=== PATIENT | male | born 1935 | race Caucasian/White ===

== ENCOUNTER → 2019-02-18 13:13 | Outpatient (CLI) | payer MEDICARE, OTHER, SELFPAY ==
--- NOTE | 2019-02-18 | DI.MRI.S_ITS ---
PROCEDURE: MR KNEE LT WO CON INDICATIONS: LEFT KNEE PAIN TECHNIQUE: Noncontrast sagittal PD fast spin echo and T2 fast spin echo with fat saturation, sagittal 3-D FLASH with fat saturation; coronal T1 spin echo and PD fast spin echo with fat saturation, and axial PD fast spin echo with fat saturation through the knee. COMPARISON: [facility], CR, XR KNEE 1 OR 2 VIEWS RIGHT, 03/11/2011, 18:19. [facility] [place], CR, XR KNEE ARTHRITIC SERIES BI, 02/03/2019, 10:35. FINDINGS: Image quality: Excellent. Menisci: There is lateral meniscal extrusion and severe degenerative tear of the entire lateral meniscus which is truncated. There is intrasubstance degeneration and mild degenerative tear of the medial meniscus. The meniscal root ligaments appear intact. Cruciate ligaments: The anterior cruciate ligament is at least partially torn. The posterior cruciate ligament is intact. Medial structures: The medial collateral ligament appears intact. The semimembranosus tendon insertions and meniscocapsular junction appear intact. Visualized portions of the pes anserinus tendons appear normal. No abnormal bursal fluid. Lateral structures: The lateral collateral ligament and the biceps femoris tendon appear intact. The popliteus tendon appears normal; the popliteofibular ligament appears intact. Iliotibial band appears normal. Anterior structures: The distal patellar tendon is severely thinned near its attachment to the tibial tubercle, consistent high-grade partial tear. Proximal patellar tendon is thickened consistent with tendinitis. There is fragmentation of tibial tubercle. The quadriceps tendon appear intact. Patellar alignment is normal. No femoral trochlear dysplasia or ventral trochlear prominence. There is edema in the infrapatellar fat pad. Bones and cartilage: No fractures. There is tricompartmental cartilage loss and signal degeneration, most severe in the lateral femorotibial compartment. There is subchondral edema in the lateral tibial plateau and lateral femoral condyle likely secondary to [id number]. Joint space: There is moderate knee joint fluid. A moderate sized nonruptured Masters's cyst is present. Normal appearing synovial plicae are incidentally noted. IMPRESSION: 1. Lateral meniscal extrusion and severe degenerative tear of the entire lateral meniscus. 2. Intrasubstance degeneration and mild degenerative tear of the medial meniscus. 3. High-grade partial tear or full-thickness tear of the anterior cruciate ligament. 4. Tricompartmental cartilage loss and signal degeneration. 5. High grade partial distal patellar tendon tear with associated patellar tendinitis. Fragmentation of the ventricle may be secondary to prior trauma or Stockton-Schlatter disease. 6. Moderate knee joint effusion. 7. A moderate sized nonruptured Masters's cyst. Dictated by: Heather Madrid M.D. on 02/18/2019 at 14:25 Approved by: Heather Madrid M.D. on 02/18/2019 at 14:42
== END ==
PROVIDERS: PCP Family Medicine; Visit Provider Orthopaedic Surgery
DX: M25.562 Pain in left knee (principal); S83.512A Sprain of anterior cruciate ligament of left knee, initial encounter; M23.262 Derangement of other lateral meniscus due to old tear or injury, left knee; M23.204 Derangement of unspecified medial meniscus due to old tear or injury, left knee; M76.52 Patellar tendinitis, left knee; M25.462 Effusion, left knee
CPT/HCPCS: 73721

== ENCOUNTER → 2019-02-19 14:06 | Outpatient (CLI) | payer MEDICARE, OTHER, SELFPAY ==
[2019-02-19 14:18] LABS: Bacteria Urine None Seen; RBC Urine None Seen (0-5/HPF); WBC Urine None Seen (0-5/HPF)
[2019-02-19 14:42] LABS: Add Manual Diff / Slide Review NO; Basophils Absolute Auto 0 /uL (0-100); Basophils Percent Auto 0.6 % (0-2); Eosinophils Absolute Auto 0 /uL (0-450); Eosinophils Percent Auto 0.5 % (2-4); Hematocrit 40.6 % (41-53); Hemoglobin 14.2 g/dL (13.5-17.5); Lymphocytes Absolute Auto 1800 /uL (1100-4500); Lymphocytes Percent Auto 20.6 % (25-40); Mean Corpuscular HGB Conc 35.1 % (30-36); Mean Corpuscular Volume 91.2 fL (80-100); Monocytes Absolute Auto 800 /uL (0-900); Neutrophils Absolute Auto 6000 /uL (1500-7000); Neutrophils Percent Auto 69.3 % (50-75); Platelet Count 246 X10^3/uL (150-400); Red Blood Cell Count 4.45 X10^6/uL (4.5-5.9); Red Cell Distribution Width 14.2 % (11.6-14.8); White Blood Cell Count 8.6 X10^3/uL (4.5-11.0)
[2019-02-19 14:55] LABS: Appearance Urine UA CLEAR; Bilirubin Urine UA NEGATIVE (NEGATIVE); Color Urine UA YELLOW; Glucose Urine UA NEGATIVE (Negative); Ketones Urine UA NEGATIVE (NEGATIVE); Leukocyte Esterase Urine UA NEGATIVE (NEGATIVE); Nitrite Urine UA NEGATIVE (Negative); Occult Blood Urine UA NEGATIVE (Negative); Protein Urine UA NEGATIVE (Negative); Urobilinogen Urine UA 0.2 E.U./dL (0.2)
[2019-02-19 15:03] LABS: Hemoglobin A1C% w Est Avg Glu 4.9 % (4.0-6.0)
[2019-02-19 15:11] LABS: BUN Creatinine Ratio 28.6 (6-22); Blood Urea Nitrogen 20 mg/dL (9-20); Calcium 9.2 mg/dL (8.4-10.2); Carbon Dioxide 28 mmol/L (22-32); Chloride 96 mmol/L (98-107); Estimated Glomerular Filt Rate > 60.0 mL/min (>60); Glucose 105 mg/dL (80-110); HEMOLYSIS < 15 (0-50); Potassium 4.4 mmol/L (3.4-5.1); Sodium 134 mmol/L (137-145)
[2019-02-19 15:12] LABS: Culture Indicated Urine Cult Not Indicated; Squamous Epithelial Cell Urine 0-1 /HPF (0-5/HPF)
== END ==
PROVIDERS: Family Provider Family Medicine; PCP Family Medicine; Visit Provider Orthopaedic Surgery
DX: Z01.818 Encounter for other preprocedural examination (principal); Z01.812 Encounter for preprocedural laboratory examination; N39.9 Disorder of urinary system, unspecified; Z13.1 Encounter for screening for diabetes mellitus; R73.9 Hyperglycemia, unspecified
CPT/HCPCS: 36415; 80048; 81001; 83036; 85025; 93005; 93010

== ENCOUNTER 2019-04-07 11:01 | Observation (INO) | payer MEDICARE, OTHER, SELFPAY ==
[2019-03-23 12:58] VITALS: BMI 24.7
[2019-04-06] VITALS (20 sets, daily range): BP systolic 114–215; BP diastolic 43–80; PULSE 41–69; RESP 11–20; TEMP 35.3–37.1; O2SAT 94–100; BMI 24.7
--- NOTE | 2019-04-06 06:00 | DI.RAD.S_ITS ---
PROCEDURE: XR KNEE LT 1TO2V INDICATIONS: TKA TECHNIQUE: 2 view(s) of the knee acquired. COMPARISON: None. FINDINGS: Expected postoperative appearance of left knee arthroplasty. Postsurgical soft tissue changes. Chronic osseous fragmentation at the tibial tuberosity.. IMPRESSION: Expected postoperative alignment Dictated by: Monroe Colby M.D. on 04/06/2019 at 13:35 Approved by: Monroe Colby M.D. on 04/06/2019 at 13:36
[2019-04-06] MEDS: VANCOMYCIN 1,000 MG/200 ML PIGGYBACK 200 MG IV (07:06)
[2019-04-06] MEDS: ACETAMINOPHEN 325 MG TABLET 975 MG PO ×3 (07:07→20:19)
[2019-04-06] MEDS: PREGABALIN 75 MG CAPSULE PO (07:07)
[2019-04-06] MEDS: CELECOXIB 200 MG CAPSULE PO (07:07)
[2019-04-06] MEDS: LACTATED RINGERS 1,000 ML 42 ML IV ×2 (07:09→09:03)
--- NOTE | 2019-04-06 07:39 | PM.PREOP ---
Pre-operative Note Interval Note History & Physical reviewed/Exam performed by Physician: Yes Changes to H&P: No
--- NOTE | 2019-04-06 07:39 | PM.OP.1 ---
Operative Date/Time/Diagnoses Date of procedure: 04/06/19 Time of procedure: 07:59 Pre-op diagnosis: left knee OA Post-op diagnosis: same Procedure & Clinicians Procedure: left total knee arthroplasty Same procedure as scheduled: Yes Indications: The patient has had progressively worsening left knee pain with radiographic changes consistent with arthritis. Non-operative management has failed and the patient has requested total knee replacement. The risks, benefits and alternatives to surgery were discussed with the patient prior to proceeding. Risks discussed included, but were not limited to, failure to relieve pain, stiffness, infection, nerve damage, deep venous thrombosis, pulmonary embolism, stroke, coma, heart attack, permanent paralysis and , as well as the potential need for eventual revision of the prosthetic. Surgeon: Prudence Hendricks Ladies Attendant: Loan Balderrama Anesthesia Type: General and Spinal Operative Notes Findings: Severe left knee osteoarthritis and lateral compartment arthritis Closure Type: primary Specimen(s): none sent Prosthetic devices, grafts, tissues, transplants, or devices: [employer] [facility] [facility] BCS 2 size 8 femur, size 7 tibia, +11 poly, 38 mm patella Applied: drain(s) Estimated Blood Loss (mL): 250 Blood products transfused: none Tourniquet time (min): 90 Procedure in detail: The patient was seen in the pre-operative area, where the patient identified the left knee as the operative site and this was marked with my initials. The patient received pre-operative antibiotics, and was taken to the operating room and placed on the operative table in the supine position. After satisfactory anesthesia, a zinc miner blasting out was performed. The left leg was encircled with a tourniquet about the proximal thigh, and the leg was prepared from the toes to the tourniquet with ChloroPrep in the usual fashion and draped through sterile drapes. The leg was elevated and exsanguinated with Eschmark bandage and the tourniquet inflated to [250] mmHg pressure. The knee was approached through an approximately 18 cm incision centered over the patella and carried into the knee through a medial parapatellar arthrotomy. A portion of the medial and lateral meniscus was resected. Soft tissue was carefully mobilized around the patella. 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 The fragment was clearly free. Soft tissue rim was meticulously mobilized around the fragment and the fragment was removed without difficulty. The patella was measured with a caliper. Bone was resected from the patella and the patellar height was reconstituted with up an appropriate sized oval patellar component. A cover was then placed on the patella. A small amount of additional medial and lateral meniscus was resected. The visionare guide fit well to the distal femur. It looked like an appropriate distal femoral cut and the cut was made without difficulty. The rotation was assessed and the appropriate size femoral guide was placed on the distal femur and finishing cuts were made. There was no evidence of notching. The anterior, posterior and chamfer cuts were then made. The posterior osteophytes and soft tissues were then removed. The posterior capsule was injected with part of a mixture of 60 ml 0.25% Marcaine mixed with 20 ml Exparel for post operative pain control. The remainder of this mixture was injected into the capsule and subcutaneous tissues during cement curing. The tibia was prepared and the visionaire guide fit well to the distal tibia. The rotation was assessed. The patient was placed in extension residual medial and lateral meniscus as well as any residual bone was carefully resected. [No] additional tibia was resected. Hemostasis was achieved especially posteriorly. Additional local was injected into the posterior capsule. The extension gap was assessed and additional releases for gap balancing were performed as necessary. It was checked with the gap government professor. The femoral component trial was placed and the notch was finished. Trial tibial and femoral components were then placed and the knee placed through a range of motion. Range of motion was [0-130], with good stability throughout the range. With a 9 insert it was a little lax and specially in the posterior medial compartment. The trials were then removed, and the tibia was finished. The bone was prepared with pulsatile lavage, and dried with a sponge. Cement was applied and the final prosthetics placed. Excess cement was removed during and after cement curing. A brief Betadine soak was performed. A trial reduction was done with the +9 +10 and +11 poly. Best stability was achieved with a +11 poly. The patient came to full extension and this was specifically checked. After confirming there was no extruded cement posteriorly, the final tibial insert was placed. The knee was copiously irrigated and the tourniquet deflated. Hemostasis was obtained with the Bovie cautery. A drain was placed and brought out superolaterally. The capsule was closed with interrupted Vicryl suture. The subcutaneous layer was closed with barbed sutures, and the skin with a running 3-0 V-Lock suture and Surgical glue. An Aquacel Ag dressing was applied and the patient was taken to recovery having tolerated the procedure well. Complications: none Post-operative Condition: stable Disposition: Acute Care Plan for aftercare: The patient will be maintained on a standard total knee replacement protocol with weight bearing as tolerated. The patient will receive aspirin and sequential compression devices for DVT prophylaxis. The patient will be discharged home when safe for the home environment.
[2019-04-06] MEDS: CEFAZOLIN 2 GM/100 ML FROZ.PIGGY IV ×2 (07:55→16:02)
[2019-04-06] MEDS: TRANEXAMIC ACID 1,000 MG VIAL 2000 MG INJ (08:10)
--- NOTE | 2019-04-06 08:27 | SUR.OPER ---
Supine on padded OR bed. Pillow under head, arms secured on padded armboards <90 degree abduction. Safety belt across torso. Non-operative leg secured with tape over blanket over lower leg. Operative leg secured in DeMayo/Smith positioner. Foam padded brace at thigh of operative leg.
[2019-04-06] MEDS: BUPIVACAINE LIPOSOME 266 MG/20 ML VIAL INJ (08:34)
[2019-04-06] MEDS: BUPIVACAINE 0.25% W/ EPI 30 ML VIAL 60 ML INJ (08:34)
[2019-04-06] MEDS: SODIUM CHLORIDE IRRIG SOLUTION 250 ML, POVIDONE-IODINE SPONGE STICKS 1 APPLIC IRR (08:40)
--- NOTE | 2019-04-06 11:10 | SUR.PHASEI ---
Patient awake, A/O x 4. Currently WARREN's x 4. Denies pain/nausea. Tolerating po.
--- NOTE | 2019-04-06 11:43 | PC.NURSE ---
Day shift: Pt on AC unit at approx 1130 from PACU. HERIBERTO wrap CDI. John-vac clamped per report. Will unclamp at approx 1200 per INFORMATION SYSTEMS ANALYST report. VS ok. Pt has Hx of HTN and BP is elevated 150/70. HR reg. Oriented to room and call light. Agrees to not get OOB w/o help from staff. Call light in reach. Pedal pulse points marked for doppler if needed.
[2019-04-06] MEDS: IBUPROFEN 400 MG TABLET PO ×3 (11:53→20:26)
[2019-04-06] MEDS: OXYCODONE IR 5 MG TABLET PO ×2 (12:32→13:40)
[2019-04-06] MEDS: LACTATED RINGERS 1,000 ML 125 ML IV (12:34)
[2019-04-06] MEDS: ATENOLOL 50 MG TABLET PO ×2 (16:05→16:15)
--- NOTE | 2019-04-06 16:11 | PT.IIE ---
Current Diagnoses Unilateral primary osteoarthritis, left knee (04/06/19) Presence of right artificial knee joint (04/06/19) Surgery Performed Operation Date: 04/06/19 07:45 Actual Procedures p Total Knee Arthroplasty(Left) - Prudence Hendricks MD Surgical History (Last Updated 03/23/19 @ 13:13 by Gricelda Conn, RN) H/O vasectomy (Acute) History of arthroplasty of right knee (Acute) History of total right hip arthroplasty (Acute) Hx of hernia repair (Acute) Hx of tonsillectomy (Acute) Medical History (Last Updated 03/23/19 @ 13:13 by Gricelda Conn RN) Hearing impaired (Acute) HTN (hypertension) (Acute) Osteoarthritis (Acute) Pneumonia (Acute) Prostate cancer (Acute) Skin cancer (Acute) Physical Therapy Inpatient Evaluation/Re-Eval M1 PT/OT-IP Prior Functional Status Start: 04/06/19 14:37 Freq: NEEDED Status: Active Protocol: Document 04/06/19 15:42 AW (Rec: 04/06/19 16:11 AW [id number]) Medical Review Prior Functional Status Medical History Reviewed Yes Diet/Fluid Consistency Regular Communication 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 Able to make needs known. Mobility and Gait Pt was independent with functional mobility, no need for assistive device, but was limited to walking ~200 yards or 10-15 minutes due to pain. Activities of Daily Living and IADL's Independent Prior Functional Level (Other details) Pt reports 6 non-injurious falls in the past year. Last recalled fall was 1.5 months ago. He states his falls have been due to knee pain. Social History Household Members spouse Living Arrangements House Number of Floors (Floors) Two Floors Number of Stairs To Enter/Railing? 2 AMANDA with left rail ascending . Home Environment High Toilet,Walk in Shower Home Equipment Front Wheel Walker,Quad Cane, Straight Cane,Shower Seat without Backrest,Hand Held Shower Employment Status Retired Additional Social History Comment Pt and state they live on the main level with no need to access the basement. M2 PT-IP Current Condition Start: 04/06/19 14:37 Freq: NEEDED Status: Active Protocol: Document 04/06/19 15:42 AW (Rec: 04/06/19 16:11 AW [id number]) Physical Therapy Current Condition Current Condition Evaluation Date 04/06/19 Treatment Diagnosis L TKA, impaired mobility Weight Bearing Status Weight Bearing Status Weight Bear as Tolerated M3 PT-IP Subjective Start: 04/06/19 14:37 Freq: NEEDED Status: Active Protocol: Document 04/06/19 15:42 AW (Rec: 04/06/19 16:11 AW [id number]) Subjective Physical Therapy Visit Type Type Initial Evaluation Visit Start Time 14:52 Visit Stop Time 15:35 Total Visit Minutes 43 Number of RECRUITER Visits 0 Physical Therapy Visit Comments Patient Comments Pt with at bedside, willing to participate with PT Patient Goals Pt hopes to discharge home with spouse assist Therapy Pain Assessment Pain When Pain Assessed During Mobility Pain Present Pain Present Pain Reported Location left knee Intensity 3 Scale Used Numeric (1 - 10) Pain Management Techniques Apply Cold,Re-positioning, Timing of Activity with Medications M4 PT-IP Mobility and Gait Start: 04/06/19 14:37 Freq: NEEDED Status: Active Protocol: Document 04/06/19 15:42 AW (Rec: 04/06/19 16:11 AW [id number]) PT-Bed Mobility Assessment Supine to Sit Supine to Sit Standby Assistance,1 Person Assistance Sit to Supine Sit to Supine Standby Assistance,1 Person Assistance Scooting Scooting to Edge of Bed Standby Assistance Scooting Up and Down in Bed Standby Assistance PT-Transfer Assessment Sit to and From Stand Sit to and from Stand Minimal Assistance,1 Person Assistance,Use of Upper Extremities Equipment Transfer Assistive Device Gait Belt,Front Wheeled Walker Orthotic/Prosthetic Devices or Brace: No Comments Mobility Comments Pt with history of hypertension. He did not take his antihypertensive medications today. BP monitored throughout: 206/68 lying in bed with HOB elevated 42 degrees, 175/100 in standing, 207/64 one minute after return to supine. Pt needed only SBA for all bed mobility and min assist x 1 for sit to stand using FWW. Pt voided clear urine in standing. Pt dropped SBP in standing and reported nausea, vomiting upon return to sitting. Repositioned pt in bed and noticed sheets were wet. Notified RN regarding BP, emesis, and bedding. Left pt in room with RN and NAC attending. Gait Assessment Comments Gait Comments Did not attempt due to pt's BP and nausea. Stair Climbing Assessment Comments Stair Climbing Comments Not assessed. PT-Balance Assessment Sitting Balance and Reactions Static Sitting Balance Ability Normal Dynamic Sitting Balance Ability Normal Standing Balance and Reactions Static Standing Balance Ability Good Device Used FWW M5 PT-IP Objective Assessments Start: 04/06/19 14:37 Freq: NEEDED Status: Active Protocol: Document 04/06/19 15:42 AW (Rec: 04/06/19 16:11 AW [id number]) Orientation Orientation/Cognition Level of Alertness Alert Orientation Name,Day of Week,Place, Situation Language Function Ability No Deficits Noted Safety Awareness Understands Safety Issues Memory Description No Deficits Noted Gross Range of Motion Upper Extremity ROM Assessment Within Functional Limits Lower Extremity ROM Assessment Left Impaired Strength Upper Extremity Strength Assessment Within Functional Limits Lower Extremity Strength Assessment Left Impaired Comments Strength Comments RLE grossly 5/5 Sensation Assessment Comments Sensation Comments Pt did not present with diminished sensation on exam, but had no sensation of voiding urine in standing. M6 PT-IP Treatment Start: 04/06/19 14:37 Freq: NEEDED Status: Active Protocol: Document 04/06/19 15:42 AW (Rec: 04/06/19 16:11 AW [id number]) Physical Therapy Treatment Exercises Exercises Ankle Pumps,Quad Sets,Heel Slides,Passive Knee Extension Hang Education Education Provided Precautions,Weight Bearing Status,Post-Op Packet,Safety Other Treatments Other Treatment Performed Reviewed PT plan of care, post -op exercises, weightbearing status, and safe use of FWW. 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 PLOF: Pt was independent in all regards, but had limited ambulation tolerance of 200 yards or 10- 15 minutes due to knee pain. CLOF: Pt required SBA for bed mobility and min assist x 1 for sit to stand. SBP dropped and DBP pam in standing with pt reporting nausea. Pt reported normal light touch sensation of BLE but had no awareness of voiding urine in standing. Anticipating pt will meet functional goals of this plan of care, PT recommends likely discharge to home with spouse assist but will continue to assess progress. Goals Bed Mobility Goal Independent Transfer Goal Standby Assistance,Front Wheeled Walker Gait Goal Standby Assistance,Front Wheel Walker Gait Distance 200 Other Goals up/down 2 steps with left rail ascending SBA Days to Meet Goals 2 Frequency of Treatment Frequency Of Treatment Twice a Day Treatment Plan Physical Therapy Treatment Plan Bed Mobility Training,Transfer Training,Gait Training, Therapeutic Exercise,Balance Retraining,Post Op Education, Discharge Planning,Hot or Cold Pack,Neuromuscular Re-ed, Coordination Retraining,Manual Therapy Recommendations To Nursing Amount of Assist Needed 1 Person Assist Discharge Recommendations PT Discharge Recommendations Home with Assistance, Outpatient PT Other Discharge Recommendations dependent on meeting functional goals
--- NOTE | 2019-04-06 16:14 | PC.NURSE ---
Addendum entered by Libra Hercules R.N. 04/06/19 22:47: 2245: Pt B/P in proper range this evening. Resting quietly at this time. Dsg CDI. Stable post op course. Call light w/in reach, bed alarm on for pt safety. Continue w/plan of care. Addendum entered by Libra Hercules R.N. 04/06/19 18:06: 1805 Pt In/out cath for 700cc clear yellow urine. Tolerated w/o incidence B/P recheck 169/61 Continue to monitor. Call light w/in reach, bed alarm on for pt safety. Addendum entered by Libra Hercules R.N. 04/06/19 17:34: 1730: MD here to see and aware of B/P Pt stood to void, 100cc clear yellow urine. Bladder scan showed 680cc Order to straight cath recieved. Original Note: Pt awake, denies discomfort at this time. Had worked w/PT, had episode of nausea/emesis. B/P now 214/71, pt did not take morning B/P meds due to surgery. Given Lisinopril and atenolol at this time Will assess. Dsg to left knee CDI. Pt incontinent x 1 IVF LR @ 125cc/hr infusing into the left inner FA via pump w/o incidence. Hemavac intact/patent. Call light w/in reach, bed alarm on for pt safety.
[2019-04-06] MEDS: LISINOPRIL 20 MG TABLET 40 MG PO (16:15)
--- NOTE | 2019-04-06 19:34 | CM.DANOTE ---
DCP Brief Assessment: EMR reviewed: Patient is an 83 yr old male who was admitted to the hospital for Lt TKA Preformed by Dr Hendricks. patients PCP is listed as Dr Jara. CM/RN met with patient at bedside patient was lethargic and not able to communicate to much with CM due to sleepiness at time of meeting. patient had just come back to the floor following surgery and CM department will need to F/U with patient when he is more alert and oriented. According to EMR patient lives with his in [facility]. 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 Inusrance: medicare 2nd is Reg[place] Plan: according to surgical notes. D/C plan is to go home when medically stable. current PT note states home with OP PT. CM department to f/u with full assessment tomorrow 04/07/2019 to determine D/C planning needs. Dayana Hendricks RN Discharge Planning/Care Management Advanced directive, confirm from FAMILY Start: 04/06/19 12:28 Freq: Q24H Status: Active Protocol: Document 04/06/19 12:28 YAD (Rec: 04/06/19 12:29 YAD [email or web address]) Advance Directive, confirm on record Time 12:29 Person contacted pt Copy received Yes CM Discharge Assessment Start: 04/06/19 19:32 Freq: Status: Active Protocol: Document 04/06/19 19:32 HS (Rec: 04/06/19 19:34 HS [id number]) Discharge Planning Assessment Assigned Medical Transcriptionist Dayana Hendricks RN DPOA/Assigned Designee Name Park Marr () Contact Information [phone] Advance Directives? Yes Advance Directives on File No History Provided By Patient Has Patient been admitted in last 30 No days? Prior Living Arrangements House Household Members spouse Independent with ADL's Yes Is patient alert and oriented? No: Patient was on pain medicaiton and just out of surgery when CM came by. Caregiver for Another No DME Already Rented / Owned FWW / Walker,Cane Barriers to Discharge No Discharge Plan Home Whiteboard Updated in Patient Room with Yes name and ext. # of Medical Transcriptionist Review Status In Process Next Review Type Continued Stay Review Pre-Anesthesia Assessment Start: 03/23/19 12:58 Freq: Status: Active Protocol: Document 03/23/19 12:58 CAB (Rec: 03/23/19 13:40 CAB [id number]) Pre-Anesthesia Assessment PAC Comment 03/24/19-Spoke s/Francie w/Dr. Hendricks for previous EKG to compare with pre-op. She stated pt has previous EKG and has had clearance from PCP. She was to fax both over. We did not receive. Patient Information Reviewed Via Phone Assessment Assessment Completed With Patient Diagnostic Results BMP/CMP,CBC,EKG,Urinalysis Comment Labs/EKG @ 02/19/19 Primary Care Provider Emmanuel Cruz Seen Specialist in Last 12 Months Yes Specialist Seen Occupational Health Technician,Orthopedist Primary Language Malay Pallet Rectifier Required No Height 187.96 cm Weight 87.543 kg Body Mass Index (BMI) 24.7 Hearing Ability Hard of Hearing,Use of Hearing Aid Visual Assist Glasses Dentition Type Teeth, Natural Present,Teeth, Missing Barriers to Learning None,Visual Other Aids No Hx Anesthesia Reactions No Hx Family Anesthesia Reaction No Hx Malignant Hyperthermia No Hx Blood Transfusions No Anesthesia Review Requested No alcohol intake current alcohol intake frequency 0-2 drinks per day Smoking Status Never smoker Substance Use Type does not use Pain Present Pain Reported Musculoskeletal Symptoms Abnormal Gait,Difficulty Walking,Joint Pain,Muscle Weakness History of Falling (Recent or History of Yes ) Patient is completely paralyzed or No completely immobile Mental Status Oriented to own ability Is patient on oxygen? No Does patient have DUGAN/SOB No Hx Sleep Apnea No Currently Taking a Beta Chuck Yes: Atenolol Can You Climb a Flight of Stairs Without Yes SOB Hx Chest Pain No Hx SOB No Hx Syncope or Dizziness No Anti-Coagulant Therapy No Has a Supervisor Parking Lot No Cardiac Testing No Hx Pacemaker/ICD No Pacemaker Rep Required? No Cardiac Clearance Received Not Applicable Diet Type At Home Regular dysphagia No Genitourinary Symptoms Dribbling, Post-void Bladder Pattern Nocturia Urinary Catheter Present No Hx Urinary Self Catheterization No Diabetes No Hx Drug Resistant Organism No Presence of External or Internal Medical Yes: Right knee, right hip Devices prosthesis, seed implant, mesh implants Have you traveled outside the [facility] States in the last 30 days? Marital Status Lives With spouse Prior Living Arrangements House Number of Floors (Floors) Two Floors Support System Friend(s),Spouse Does the Patient Have Assistance After Yes Surgery Patient Discharge Plan Description Return Home Comment Pt advised overnight length of stay per surgeon Feels Safe in Current Environment Yes Been Physically Hurt or Threatened By a No Person in Current Environment Do you have thoughts of harming yourself None or others? Are you currently considering suicide? No Do you have a plan to hurt yourself or No Plan others? Do You Have Any Spiritual Beliefs That No May Affect Your HC Choices? Do You Have Any Cultural Practices That No May Affect Your HC Choices? Comment Yarsani Who Can We Speak to About Patient's Care Family, friends Identifying Code for Release of Patient Declines to issue Information Health Care Proxy/Next of Kin Park Toscano () Health Care Proxy Emergency Contact Name Park Toscano () Emergency Contact Advance Directives? Yes Advance Directives on File No Requested Patient Bring Advanced Yes Directives DOS Power of Director Physical Yes Power of Director Physical Name Park Toscano (valentin) Power of Director Physical PAC Instructions Durable medical equipment, Medications to take/avoid, Nasal antibiotic,No ETOH/ petroleum product on skin DOS, NPO,Post-op transportation,Pre -surgical wash,Sensory aids, Sturdy shoes/comfortable clothes,Do not bring valuables and remove jewelry
[2019-04-06] MEDS: AMLODIPINE 5 MG TABLET PO (20:21)
[2019-04-06] MEDS: ASPIRIN EC 81 MG TABLET PO (20:26)
[2019-04-06] MEDS: DOCUSATE 100 MG CAPSULE PO (20:26)
--- NOTE | 2019-04-06 22:27 | PC.NURSE ---
Evening shift summary When this student nurse arrived at 1830 the patient was laying in bed. When attempting physical assessment of patients lungs patient suggested he could sit up on the side of the bed. This student nurse assisted the patient to the side of the bed and encouraged the patient to use the urinal. The patient could not void. This student nurse assessed the patients posterior skin and noticed his buttox was red. When assisting the patient back to bed, this student nurse assisted the patient into a right side lying position. Patient's 2100 Lisinopril 40 mg PO was held because his BP 114/54 and patient had received Lisinopril 40 mg PO at 1615. Safety: Bed is low and locked. Bed alarm is on. Call light is within reach. Patient was instructed to call if needing to get out of bed.
[2019-04-07] VITALS (18 sets, daily range): BP systolic 125–243; BP diastolic 56–96; PULSE 58–84; RESP 16–18; TEMP 36.8–37.3; O2SAT 95–99
[2019-04-07] MEDS: CEFAZOLIN 2 GM/100 ML FROZ.PIGGY IV
[2019-04-07] MEDS: IBUPROFEN 400 MG TABLET PO ×5 (00:53→20:36)
[2019-04-07 05:48] LABS: Hematocrit 40.1 % (41-53); Hemoglobin 13.7 g/dL (13.5-17.5)
[2019-04-07] MEDS: LACTATED RINGERS 1,000 ML 125 ML IV (06:27)
[2019-04-07] MEDS: hydrOXYzine pamoate 25 MG CAPSULE PO ×2 (07:57→14:00)
[2019-04-07] MEDS: LISINOPRIL 20 MG TABLET 40 MG PO ×2 (07:57→20:37)
[2019-04-07] MEDS: OXYCODONE IR 5 MG TABLET PO ×2 (07:59→13:59)
[2019-04-07] MEDS: ACETAMINOPHEN 325 MG TABLET 975 MG PO ×3 (07:59→20:33)
[2019-04-07] MEDS: DOCUSATE 100 MG CAPSULE PO ×2 (07:59→20:35)
[2019-04-07] MEDS: ASPIRIN EC 81 MG TABLET PO ×2 (07:59→20:36)
--- NOTE | 2019-04-07 08:52 | PT.OTN ---
Current Diagnoses Unilateral primary osteoarthritis, left knee (04/06/19) Presence of right artificial knee joint (04/06/19)
--- NOTE | 2019-04-07 09:12 | PT.IPTN ---
Addendum entered and electronically signed by Cele Peck, JESSENIA 04/07/19 14:26: Pt was laying down in bed at end of tx with call light and all needs within reach, bed alarm turned on and in room visiting when left. Original Note: Current Diagnoses Unilateral primary osteoarthritis, left knee (04/06/19) Presence of right artificial knee joint (04/06/19) Surgery Performed Operation Date: 04/06/19 07:45 Actual Procedures p Total Knee Arthroplasty(Left) - Prudence Hendricks MD Physical Therapy Treatment Note M2 PT-IP Current Condition Start: 04/06/19 14:37 Freq: NEEDED Status: Active Protocol: Document 04/06/19 15:42 AW (Rec: 04/06/19 16:11 AW [id number]) Physical Therapy Current Condition Current Condition Evaluation Date 04/06/19 Treatment Diagnosis L TKA, impaired mobility Weight Bearing Status Weight Bearing Status Weight Bear as Tolerated M3 PT-IP Subjective Start: 04/06/19 14:37 Freq: NEEDED Status: Active Protocol: Document 04/07/19 12:50 SP (Rec: 04/07/19 13:07 SP [email or web address]) Subjective Physical Therapy Visit Type Type Treatment Note Visit Start Time 12:27 Visit Stop Time 12:50 Total Visit Minutes 33 Number of FISH CUTTING MACHINE OPERATOR Visits 2 Physical Therapy Visit Comments Patient Comments Pt agreed to PT today. Patient Goals Pt hopes to DC home today or tomorrow. Therapy Pain Assessment Pain When Pain Assessed At Rest Pain Present Pain Present Pain Reported Location left knee Intensity 1 Scale Used Numeric (1 - 10) M4 PT-IP Mobility and Gait Start: 04/06/19 14:37 Freq: NEEDED Status: Active Protocol: Document 04/07/19 12:50 SP (Rec: 04/07/19 13:07 SP [email or web address]) PT-Bed Mobility Assessment Rolling Type of Rolling Roll to Left Supine to Sit Supine to Sit Standby Assistance,1 Person Assistance Sit to Supine Sit to Supine Standby Assistance Scooting Scooting to Edge of Bed Standby Assistance Scooting Up and Down in Bed Standby Assistance PT-Transfer Assessment Sit to and From Stand Sit to and from Stand Contact Guard Assistance,1 Person Assistance,Use of Upper Extremities Equipment Transfer Assistive Device Gait Belt,Front Wheeled Walker Orthotic/Prosthetic Devices or Brace: No Transfers Transfer Destination Chair Transfer Technique Stand Step Pivot Transfer Ability Level of Assist Contact Guard Assistance,Use of Upper Extremities Comments Mobility Comments Pt hx of hypertension. BP monitored throughout: supine 201/86 HOB elevated 45deg, standing 154/83, 173/81 after standing activity. Pt non symptomatic durign standing activity. Gait Assessment Gait Gait Assistance Required: Contact Guard Assist,1 Person Assist Distance (Feet) 30 Able to Maintain Weight Bearing Status Yes During Gait Gait Deviations General Gait Pattern Antalgic,Decreased Stride Length,Decreased Feet Clearance,Narrow Based Gait, Step-to Gait Factors Limiting Gait Function Factors Limiting Gait Function Decreased Activity Tolerance, Decreased Strength,Limited Range of Motion,Pain,Poor Balance,Poor Safety Awareness Comments Gait Comments Pt was able to complete BM SBA , transfer sit to stand and gait in room CGA with use of BUE with noted 51 point drop supine and standing non symptomatic. Pt required to assess stairs but did not feel safe with orthostatic BPs. Discussed with patient did not recommend trial stair mgt and discussed with nurse. Recommend Nursing perform orthostatic BPs later today and PT can try assessing stair in am if safe BPs. PT-Balance Assessment Sitting Balance and Reactions Static Sitting Balance Ability Normal Dynamic Sitting Balance Ability Normal Standing Balance and Reactions Static Standing Balance Ability Good Device Used FWW M5 PT-IP Objective Assessments Start: 04/06/19 14:37 Freq: NEEDED Status: Active Protocol: Document 04/06/19 15:42 AW (Rec: 04/06/19 16:11 AW [id number]) Orientation Orientation/Cognition Level of Alertness Alert Orientation Name,Day of Week,Place, Situation Language Function Ability No Deficits Noted Safety Awareness Understands Safety Issues Memory Description No Deficits Noted Gross Range of Motion Upper Extremity ROM Assessment Within Functional Limits Lower Extremity ROM Assessment Left Impaired Strength Upper Extremity Strength Assessment Within Functional Limits Lower Extremity Strength Assessment Left Impaired Comments Strength Comments RLE grossly 5/5 Sensation Assessment Comments Sensation Comments Pt did not present with diminished sensation on exam, but had no sensation of voiding urine in standing. M6 PT-IP Treatment Start: 04/06/19 14:37 Freq: NEEDED Status: Active Protocol: Document 04/07/19 08:52 SP (Rec: 04/07/19 09:01 SP [email or web address]) Physical Therapy Treatment Exercises Exercises Ankle Pumps,Quad Sets,Heel Slides,Straight Leg Raises, Seated Knee Flexion/Extension Education Education Provided Precautions,Weight Bearing Status,Post-Op Packet,Safety M7 PT-IP Assessment and Plan Start: 04/06/19 14:37 Freq: NEEDED Status: Active Protocol: Document 04/07/19 12:50 SP (Rec: 04/07/19 13:07 SP [email or web address]) PT Summary Assessment and Plan Potential Rehabilitation Potential Good Status of Condition at Evaluation Stable Summary Impairments Pain,ROM,Strength,Sensation, Bed Mobility,Transfers,Gait, Activity Tolerance Assessment Summary 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 PLOF: Pt was independent in all regards, but had limited ambulation tolerance of 200 yards or 10- 15 minutes due to knee pain. CLOF: Pt required SBA for bed mobility and min assist x 1 for sit to stand. SBP dropped and DBP pam in standing with pt reporting nausea. Pt reported normal light touch sensation of BLE but had no awareness of voiding urine in standing. Anticipating pt will meet functional goals of this plan of care, PT recommends likely discharge to home with spouse assist but will continue to assess progress. See mobility recommendations. Orthostatic BPs decreased 51 points durign supien and standing, non symptomatic but did not feels safe to trial stair to prep for DC. Recommended to nursing to take vitals later today and PT will assess further in Am,has been seen for 2nd treatment today. FISH CUTTING MACHINE OPERATOR discussed [facility] PT and in agreement to hold Dc today and reassess tomorrow am . Pt was laying down in bed with call light and needs within in reach and bed alarm activated. Friend in room visiting when left room. Goals Bed Mobility Goal Independent Transfer Goal Standby Assistance,Front Wheeled Walker Gait Goal Standby Assistance,Front Wheel Walker Gait Distance 200 Other Goals up/down 2 steps with left rail ascending SBA Days to Meet Goals 2 Frequency of Treatment Frequency Of Treatment Twice a Day Treatment Plan Physical Therapy Treatment Plan Bed Mobility Training,Transfer Training,Gait Training, Therapeutic Exercise,Balance Retraining,Post Op Education, Discharge Planning,Hot or Cold Pack,Neuromuscular Re-ed, Coordination Retraining,Manual Therapy Recommendations To Nursing Amount of Assist Needed 1 Person Assist Discharge Recommendations PT Discharge Recommendations Home with Assistance, Outpatient PT Other Discharge Recommendations dependent on meeting functional goals
--- NOTE | 2019-04-07 12:50 | PT.IPTN ---
Current Diagnoses Unilateral primary osteoarthritis, left knee (04/06/19) Presence of right artificial knee joint (04/06/19) Surgery Performed Operation Date: 04/06/19 07:45 Actual Procedures p Total Knee Arthroplasty(Left) - Prudence Hendricks MD Physical Therapy Treatment Note M2 PT-IP Current Condition Start: 04/06/19 14:37 Freq: NEEDED Status: Active Protocol: Document 04/06/19 15:42 AW (Rec: 04/06/19 16:11 AW [id number]) Physical Therapy Current Condition Current Condition Evaluation Date 04/06/19 Treatment Diagnosis L TKA, impaired mobility Weight Bearing Status Weight Bearing Status Weight Bear as Tolerated M3 PT-IP Subjective Start: 04/06/19 14:37 Freq: NEEDED Status: Active Protocol: Document 04/07/19 12:50 SP (Rec: 04/07/19 13:07 SP [email or web address]) Subjective Physical Therapy Visit Type Type Treatment Note Visit Start Time 12:27 Visit Stop Time 12:50 Total Visit Minutes 33 Number of CAFE AIDE Visits 2 Physical Therapy Visit Comments Patient Comments Pt agreed to PT today. Patient Goals Pt hopes to DC home today or tomorrow. Therapy Pain Assessment Pain When Pain Assessed At Rest Pain Present Pain Present Pain Reported Location left knee Intensity 1 Scale Used Numeric (1 - 10) M4 PT-IP Mobility and Gait Start: 04/06/19 14:37 Freq: NEEDED Status: Active Protocol: Document 04/07/19 12:50 SP (Rec: 04/07/19 13:07 SP [email or web address]) PT-Bed Mobility Assessment Rolling Type of Rolling Roll to Left Supine to Sit Supine to Sit Standby Assistance,1 Person Assistance Sit to Supine Sit to Supine Standby Assistance Scooting Scooting to Edge of Bed Standby Assistance Scooting Up and Down in Bed Standby Assistance PT-Transfer Assessment Sit to and From Stand Sit to and from Stand Contact Guard Assistance,1 Person Assistance,Use of Upper Extremities Equipment Transfer Assistive Device Gait Belt,Front Wheeled Walker Orthotic/Prosthetic Devices or Brace: No Transfers Transfer Destination Chair Transfer Technique Stand Step Pivot Transfer Ability Level of Assist Contact Guard Assistance,Use of Upper Extremities Comments Mobility Comments Pt hx of hypertension. BP monitored throughout: supine 201/86 HOB elevated 45deg, standing 154/83, 173/81 after standing activity. Pt non symptomatic durign standing activity. Gait Assessment Gait Gait Assistance Required: Contact Guard Assist,1 Person Assist Distance (Feet) 30 Able to Maintain Weight Bearing Status Yes During Gait Gait Deviations General Gait Pattern Antalgic,Decreased Stride Length,Decreased Feet Clearance,Narrow Based Gait, Step-to Gait Factors Limiting Gait Function Factors Limiting Gait Function Decreased Activity Tolerance, Decreased Strength,Limited Range of Motion,Pain,Poor Balance,Poor Safety Awareness Comments Gait Comments Pt was able to complete BM SBA , transfer sit to stand and gait in room CGA with use of BUE with noted 51 point drop supine and standing non symptomatic. Pt required to assess stairs but did not feel safe with orthostatic BPs. Discussed with patient did not recommend trial stair mgt and discussed with nurse. Recommend Nursing perform orthostatic BPs later today and PT can try assessing stair in am if safe BPs. PT-Balance Assessment Sitting Balance and Reactions Static Sitting Balance Ability Normal Dynamic Sitting Balance Ability Normal Standing Balance and Reactions Static Standing Balance Ability Good Device Used FWW M5 PT-IP Objective Assessments Start: 04/06/19 14:37 Freq: NEEDED Status: Active Protocol: Document 04/06/19 15:42 AW (Rec: 04/06/19 16:11 AW [id number]) Orientation Orientation/Cognition Level of Alertness Alert Orientation Name,Day of Week,Place, Situation Language Function Ability No Deficits Noted Safety Awareness Understands Safety Issues Memory Description No Deficits Noted Gross Range of Motion Upper Extremity ROM Assessment Within Functional Limits Lower Extremity ROM Assessment Left Impaired Strength Upper Extremity Strength Assessment Within Functional Limits Lower Extremity Strength Assessment Left Impaired Comments Strength Comments RLE grossly 5/5 Sensation Assessment Comments Sensation Comments Pt did not present with diminished sensation on exam, but had no sensation of voiding urine in standing. M6 PT-IP Treatment Start: 04/06/19 14:37 Freq: NEEDED Status: Active Protocol: Document 04/07/19 08:52 SP (Rec: 04/07/19 09:01 SP [email or web address]) Physical Therapy Treatment Exercises Exercises Ankle Pumps,Quad Sets,Heel Slides,Straight Leg Raises, Seated Knee Flexion/Extension Education Education Provided Precautions,Weight Bearing Status,Post-Op Packet,Safety M7 PT-IP Assessment and Plan Start: 04/06/19 14:37 Freq: NEEDED Status: Active Protocol: Document 04/07/19 12:50 SP (Rec: 04/07/19 13:07 SP [email or web address]) PT Summary Assessment and Plan Potential Rehabilitation Potential Good Status of Condition at Evaluation Stable Summary Impairments Pain,ROM,Strength,Sensation, Bed Mobility,Transfers,Gait, Activity Tolerance Assessment Summary 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 PLOF: Pt was independent in all regards, but had limited ambulation tolerance of 200 yards or 10- 15 minutes due to knee pain. CLOF: Pt required SBA for bed mobility and min assist x 1 for sit to stand. SBP dropped and DBP pam in standing with pt reporting nausea. Pt reported normal light touch sensation of BLE but had no awareness of voiding urine in standing. Anticipating pt will meet functional goals of this plan of care, PT recommends likely discharge to home with spouse assist but will continue to assess progress. See mobility recommendations. Orthostatic BPs decreased 51 points durign supien and standing, non symptomatic but did not feels safe to trial stair to prep for DC. Recommended to nursing to take vitals later today and PT will assess further in Am,has been seen for 2nd treatment today. CAFE AIDE discussed [facility] PT and in agreement to hold Dc today and reassess tomorrow am . Goals Bed Mobility Goal Independent Transfer Goal Standby Assistance,Front Wheeled Walker Gait Goal Standby Assistance,Front Wheel Walker Gait Distance 200 Other Goals up/down 2 steps with left rail ascending SBA Days to Meet Goals 2 Frequency of Treatment Frequency Of Treatment Twice a Day Treatment Plan Physical Therapy Treatment Plan Bed Mobility Training,Transfer Training,Gait Training, Therapeutic Exercise,Balance Retraining,Post Op Education, Discharge Planning,Hot or Cold Pack,Neuromuscular Re-ed, Coordination Retraining,Manual Therapy Recommendations To Nursing Amount of Assist Needed 1 Person Assist Discharge Recommendations PT Discharge Recommendations Home with Assistance, Outpatient PT Other Discharge Recommendations dependent on meeting functional goals
--- NOTE | 2019-04-07 12:50 | PT.IPTN ---
Current Diagnoses Unilateral primary osteoarthritis, left knee (04/06/19) Presence of right artificial knee joint (04/06/19) Surgery Performed Operation Date: 04/06/19 07:45 Actual Procedures p Total Knee Arthroplasty(Left) - Prudence Hendricks MD Physical Therapy Treatment Note M2 PT-IP Current Condition Start: 04/06/19 14:37 Freq: NEEDED Status: Active Protocol: Document 04/06/19 15:42 AW (Rec: 04/06/19 16:11 AW [id number]) Physical Therapy Current Condition Current Condition Evaluation Date 04/06/19 Treatment Diagnosis L TKA, impaired mobility Weight Bearing Status Weight Bearing Status Weight Bear as Tolerated M3 PT-IP Subjective Start: 04/06/19 14:37 Freq: NEEDED Status: Active Protocol: Document 04/07/19 12:50 SP (Rec: 04/07/19 13:07 SP [email or web address]) Subjective Physical Therapy Visit Type Type Treatment Note Visit Start Time 12:27 Visit Stop Time 12:50 Total Visit Minutes 33 Number of NURSES' ASSOCIATION COUNSELOR Visits 2 Physical Therapy Visit Comments Patient Comments Pt agreed to PT today. Patient Goals Pt hopes to DC home today or tomorrow. Therapy Pain Assessment Pain When Pain Assessed At Rest Pain Present Pain Present Pain Reported Location left knee Intensity 1 Scale Used Numeric (1 - 10) M4 PT-IP Mobility and Gait Start: 04/06/19 14:37 Freq: NEEDED Status: Active Protocol: Document 04/07/19 12:50 SP (Rec: 04/07/19 13:07 SP [email or web address]) PT-Bed Mobility Assessment Rolling Type of Rolling Roll to Left Supine to Sit Supine to Sit Standby Assistance,1 Person Assistance Sit to Supine Sit to Supine Standby Assistance Scooting Scooting to Edge of Bed Standby Assistance Scooting Up and Down in Bed Standby Assistance PT-Transfer Assessment Sit to and From Stand Sit to and from Stand Contact Guard Assistance,1 Person Assistance,Use of Upper Extremities Equipment Transfer Assistive Device Gait Belt,Front Wheeled Walker Orthotic/Prosthetic Devices or Brace: No Transfers Transfer Destination Chair Transfer Technique Stand Step Pivot Transfer Ability Level of Assist Contact Guard Assistance,Use of Upper Extremities Comments Mobility Comments Pt hx of hypertension. BP monitored throughout: supine 201/86 HOB elevated 45deg, standing 154/83, 173/81 after standing activity. Pt non symptomatic durign standing activity. Gait Assessment Gait Gait Assistance Required: Contact Guard Assist,1 Person Assist Distance (Feet) 30 Able to Maintain Weight Bearing Status Yes During Gait Gait Deviations General Gait Pattern Antalgic,Decreased Stride Length,Decreased Feet Clearance,Narrow Based Gait, Step-to Gait Factors Limiting Gait Function Factors Limiting Gait Function Decreased Activity Tolerance, Decreased Strength,Limited Range of Motion,Pain,Poor Balance,Poor Safety Awareness Comments Gait Comments Pt was able to complete BM SBA , transfer sit to stand and gait in room CGA with use of BUE with noted 51 point drop supine and standing non symptomatic. Pt required to assess stairs but did not feel safe with orthostatic BPs. Discussed with patient did not recommend trial stair mgt and discussed with nurse. Recommend Nursing perform orthostatic BPs later today and PT can try assessing stair in am if safe BPs. PT-Balance Assessment Sitting Balance and Reactions Static Sitting Balance Ability Normal Dynamic Sitting Balance Ability Normal Standing Balance and Reactions Static Standing Balance Ability Good Device Used FWW M5 PT-IP Objective Assessments Start: 04/06/19 14:37 Freq: NEEDED Status: Active Protocol: Document 04/06/19 15:42 AW (Rec: 04/06/19 16:11 AW [id number]) Orientation Orientation/Cognition Level of Alertness Alert Orientation Name,Day of Week,Place, Situation Language Function Ability No Deficits Noted Safety Awareness Understands Safety Issues Memory Description No Deficits Noted Gross Range of Motion Upper Extremity ROM Assessment Within Functional Limits Lower Extremity ROM Assessment Left Impaired Strength Upper Extremity Strength Assessment Within Functional Limits Lower Extremity Strength Assessment Left Impaired Comments Strength Comments RLE grossly 5/5 Sensation Assessment Comments Sensation Comments Pt did not present with diminished sensation on exam, but had no sensation of voiding urine in standing. M6 PT-IP Treatment Start: 04/06/19 14:37 Freq: NEEDED Status: Active Protocol: Document 04/07/19 08:52 SP (Rec: 04/07/19 09:01 SP [email or web address]) Physical Therapy Treatment Exercises Exercises Ankle Pumps,Quad Sets,Heel Slides,Straight Leg Raises, Seated Knee Flexion/Extension Education Education Provided Precautions,Weight Bearing Status,Post-Op Packet,Safety M7 PT-IP Assessment and Plan Start: 04/06/19 14:37 Freq: NEEDED Status: Active Protocol: Document 04/07/19 12:50 SP (Rec: 04/07/19 13:07 SP [email or web address]) PT Summary Assessment and Plan Potential Rehabilitation Potential Good Status of Condition at Evaluation Stable Summary Impairments Pain,ROM,Strength,Sensation, Bed Mobility,Transfers,Gait, Activity Tolerance Assessment Summary 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 PLOF: Pt was independent in all regards, but had limited ambulation tolerance of 200 yards or 10- 15 minutes due to knee pain. CLOF: Pt required SBA for bed mobility and min assist x 1 for sit to stand. SBP dropped and DBP pam in standing with pt reporting nausea. Pt reported normal light touch sensation of BLE but had no awareness of voiding urine in standing. Anticipating pt will meet functional goals of this plan of care, PT recommends likely discharge to home with spouse assist but will continue to assess progress. See mobility recommendations. Orthostatic BPs decreased 51 points durign supien and standing, non symptomatic but did not feels safe to trial stair to prep for DC. Recommended to nursing to take vitals later today and PT will assess further in Am,has been seen for 2nd treatment today. NURSES' ASSOCIATION COUNSELOR discussed wt PT and in agreement to hold Dc today and reassess tomorrow am . Pt was laying down in bed with call light and needs within in reach and bed alarm activated. Friend in room visiting when left room. Goals Bed Mobility Goal Independent Transfer Goal Standby Assistance,Front Wheeled Walker Gait Goal Standby Assistance,Front Wheel Walker Gait Distance 200 Other Goals up/down 2 steps with left rail ascending SBA Days to Meet Goals 2 Frequency of Treatment Frequency Of Treatment Twice a Day Treatment Plan Physical Therapy Treatment Plan Bed Mobility Training,Transfer Training,Gait Training, Therapeutic Exercise,Balance Retraining,Post Op Education, Discharge Planning,Hot or Cold Pack,Neuromuscular Re-ed, Coordination Retraining,Manual Therapy Recommendations To Nursing Amount of Assist Needed 1 Person Assist Discharge Recommendations PT Discharge Recommendations Home with Assistance, Outpatient PT Other Discharge Recommendations dependent on meeting functional goals
--- NOTE | 2019-04-07 14:13 | PT-IP ANOTE ---
MECHANICAL TECHNICIAN went up to patient room for 3rd visit per REBECCA suggestion to trial portable 1-2 step mgt with L HR in room to assess safety management entering home, upon discussion with nurse prior to entering room nursing assessed orthostatic BPs sit and stand BP approx 13:53-56 and noted decreased in systolic 243/85 supine and 192/78 standing. Nurse stated patient unsafe for DC at this time. PT will trial stair mgt tomorrow if vitals stable.
[2019-04-07] MEDS: LABETALOL 20 MG/4 ML SYRINGE 10 MG IV (14:30)
[2019-04-07] MEDS: AMLODIPINE 5 MG TABLET PO ×2 (14:30→20:34)
[2019-04-07 15:02] LABS: BUN Creatinine Ratio 25.7 (6-22); Blood Urea Nitrogen 18 mg/dL (9-20); Calcium 8.4 mg/dL (8.4-10.2); Carbon Dioxide 25 mmol/L (22-32); Chloride 97 mmol/L (98-107); Estimated Glomerular Filt Rate > 60.0 mL/min (>60); Glucose 177 mg/dL (80-110); HEMOLYSIS 16 (0-50); Potassium 3.9 mmol/L (3.4-5.1); Sodium 131 mmol/L (137-145)
[2019-04-07 15:03] LABS: Magnesium 1.8 mg/dL (1.6-2.3)
--- NOTE | 2019-04-07 15:49 | PC.NURSE ---
Ortho: Pt having issues with elevated bp. Systolic 240's and ZAN Badlerrama made aware. Also notified of hemovac output of 175mls for this shift. See new orders. Meds given and bp down to 203/70. Pt denies any dizziness or problems. Pt has been in adaq control for pain. Bladder scanned for less than 200mls. (Had I/O cath yesterday for retention) at bedside and helpful. Pt reports he doesn't feel bad and has no dizziness. Has been up several times with out problems. Discharge has been cancelled for now due to bp issues and pt/spouse aware. Cont w/poc.
[2019-04-07] MEDS: FUROSEMIDE 20 MG/2 ML VIAL IV (17:34)
--- NOTE | 2019-04-07 20:28 | PM.PN.1 ---
Subjective Subjective Date Patient Seen: 04/07/19 Interval history: Patient is POD#1 s/p total knee arthroplasty with Dr. Hendricks. Pain has been well controlled. Mobilized with PT. Voiding appropriately. No chest pain, shortness of breath, calf pain, dizziness, lightheadedness or vision changes. Exam Vital Signs (past 8 hours): - 04/07/19 12:33 04/07/19 13:53 04/07/19 13:56 Temperature 99.2 F Pulse Rate 84 Respiratory Rate 18 Blood Pressure 201/86 H 243/85 H 192/78 H Pulse Oximetry 97 04/07/19 14:30 04/07/19 14:42 04/07/19 14:44 Temperature Pulse Rate 75 Respiratory Rate Blood Pressure 186/65 H 186/65 H 191/59 H Pulse Oximetry 04/07/19 14:46 04/07/19 15:48 04/07/19 16:15 Temperature Pulse Rate 76 69 Respiratory Rate 16 Blood Pressure 189/56 H 203/70 H 195/71 H Pulse Oximetry 98 04/07/19 17:37 Temperature Pulse Rate Respiratory Rate Blood Pressure 150/96 H Pulse Oximetry Oxygen Delivery Method Room Air Oxygen Flow Rate 0 Narrative Exam Narrative: 83 year old male resting comfortably in bed. Alert and oriented in no acute distress. Dresssing in place over left knee is CDI. Patient able to flex/extend the ankle. Calvess soft, compressible bilaterally. Palpable pedal pulse. Objective Labs Result Diagrams: 04/07/19 05:35 04/07/19 14:31 Labs: Laboratory Results - last 24 hr 04/07/19 04/07/19 04/07/19 05:35 14:31 14:31 Hgb 13.7 Hct 40.1 L Sodium 131 L Potassium 3.9 Chloride 97 L Carbon Dioxide 25 BUN 18 Creatinine 0.70 Estimated GFR > 60.0 BUN/Creatinine Ratio 25.7 H Glucose 177 H Calcium 8.4 Magnesium 1.8 Assessment & Plan Assessment & Plan narrative: Continue current regimen for pain control. Mobilize with PT, will need stair training prior to discharge. 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 Recommended a one time dose of Labetalol 10mg IV was given, with a later one time dose of Lasix 20mg IV. Atenolol increased to 100mg daily and Amlodipine 10mg QHS. Lisinopril is already at max daily dosing. BMP ordered was unremarkable, mild hyponatremia. Patient initially was to be discharged to home today, kept an additional night for continued monitoring of hypertension.
--- NOTE | 2019-04-07 22:29 | PC.NURSE ---
Shift summary: When this student nurse arrived on shift the patient was lying comfortably in bed and his was in the room. During his assessment at 1615, the patients blood pressure was 195/71. When reassessed at 1730, the patients blood pressure was 150/96. The patient denied any dizziness or lightheadedness. After the patient received Amlodipine 5 mg PO and Lisinopril 40 mg PO with 2100 medications, this student nurse reassessed the patients blood pressure at 2030 and it was 125/85. This student nurse bladder scanned the patient at approximately 1730 after a void of 200 mL. The bladder scanner read 130 mL of residual volume. The patients abdomen was absent of distention or discomfort. At the end of the shift the patient was asleep in a low and locked bed with his call light in reach. The patient was encouraged to call for assistance and the bed alarm was activated.
[2019-04-08] MEDS: IBUPROFEN 400 MG TABLET PO ×3 (00:10→08:01)
[2019-04-08 05:00] VITALS: BP 179/80; PULSE 76; RESP 16; TEMP 36.6; O2SAT 95
[2019-04-08] MEDS: SODIUM CHLORIDE 0.9% FLUSH 10 ML IV ×2 (06:10→08:02)
--- NOTE | 2019-04-08 06:11 | PC.NURSE ---
Pt reports minimal pain overnight, on scheduled ibuprofen. Hemovac to left knee with 50cc sanguinous drainage overnight. CMS intact to LLE. SCDs on overnight. Pt using urinal at bedside, does not use call light for SBA. Needs strong reinforcement of fall risk. Sipping water at bedside. HTN this morning to 179/80, HR 76, pt on multiple antihypertensives, denies dizziness at rest, headache, vision changes. Plan to discontinue hemovac drain before discharge to home.
[2019-04-08 07:20] VITALS: BP 183/76; PULSE 88; RESP 16; TEMP 37; O2SAT 97
[2019-04-08 08:00] VITALS: BP 183/76
[2019-04-08] MEDS: ACETAMINOPHEN 325 MG TABLET 975 MG PO (08:00)
[2019-04-08] MEDS: LISINOPRIL 20 MG TABLET 40 MG PO (08:00)
[2019-04-08] MEDS: DOCUSATE 100 MG CAPSULE PO (08:01)
[2019-04-08] MEDS: ASPIRIN EC 81 MG TABLET PO (08:01)
[2019-04-08] MEDS: hydrOXYzine pamoate 25 MG CAPSULE PO (08:01)
[2019-04-08] MEDS: AMLODIPINE 5 MG TABLET PO (08:01)
[2019-04-08] MEDS: OXYCODONE IR 5 MG TABLET PO (08:01)
[2019-04-08] MEDS: ATENOLOL 50 MG TABLET 100 MG PO (08:09)
--- NOTE | 2019-04-08 09:13 | PT.IPTN ---
Current Diagnoses Unilateral primary osteoarthritis, left knee (04/06/19) Presence of right artificial knee joint (04/06/19) Surgery Performed Operation Date: 04/06/19 07:45 Actual Procedures p Total Knee Arthroplasty(Left) - Prudence Hendricks MD Physical Therapy Treatment Note M2 PT-IP Current Condition Start: 04/06/19 14:37 Freq: NEEDED Status: Active Protocol: Document 04/06/19 15:42 AW (Rec: 04/06/19 16:11 AW [email or web address]) Physical Therapy Current Condition Current Condition Evaluation Date 04/06/19 Treatment Diagnosis L TKA, impaired mobility Weight Bearing Status Weight Bearing Status Weight Bear as Tolerated M3 PT-IP Subjective Start: 04/06/19 14:37 Freq: NEEDED Status: Active Protocol: Document 04/08/19 08:40 PRECIOUS (Rec: 04/08/19 09:35 PRECIOUS [email or web address]) Subjective Physical Therapy Visit Type Type Treatment Note Visit Start Time 08:40 Visit Stop Time 09:13 Total Visit Minutes 33 Number of KNIT GOODS CUTTER HAND Visits 3 Physical Therapy Visit Comments Treatment observed by KNIT GOODS CUTTER HAND Cele Peck Patient Comments Pt agreeable to work with therapy and complete stair training. Patient Goals Pt wants to go home today. Therapy Pain Assessment Pain When Pain Assessed After Treatment Pain Present Pain Present Denied Pain M4 PT-IP Mobility and Gait Start: 04/06/19 14:37 Freq: NEEDED Status: Active Protocol: Document 04/08/19 08:40 PRECIOUS (Rec: 04/08/19 09:35 PRECIOUS [email or web address]) PT-Transfer Assessment Sit to and From Stand Sit to and from Stand Contact Guard Assistance,1 Person Assistance,Use of Upper Extremities Equipment Transfer Assistive Device Gait Belt,Front Wheeled Walker Orthotic/Prosthetic Devices or Brace: No Transfers Transfer Destination Chair Transfer Technique Pt ambulated with FWW. Transfer Ability Level of Assist Contact Guard Assistance,Use of Upper Extremities Comments Mobility Comments Pts BP is 173/71 sitting, 160/ 101 secondary to standing for two min, and 158/89 following gait and stair training. Demonstrated proper STS technique with CGA and use of UE. Gait Assessment Gait Gait Assistance Required: Contact Guard Assist,1 Person Assist Distance (Feet) 520 Able to Maintain Weight Bearing Status Yes During Gait Assistive Devices Assistive Device Gait Belt,Front Wheeled Walker Orthotic/Prosthetic Devices or Brace: No Gait Deviations General Gait Pattern Antalgic,Decreased Stride Length,Decreased Feet Clearance,Narrow Based Gait Factors Limiting Gait Function Factors Limiting Gait Function Decreased Activity Tolerance, Decreased Strength,Limited Range of Motion,Poor Balance, Poor Safety Awareness Comments Gait Comments Pt ambulated to bathroom and had bowel movement with successful self care. Tolerated walk to training stairs w/o increase in symptoms. Decreased foot clearance and stride length due to limited ROM. Required cues to stay within FWW while using. Completed caregiver training with pts during ambulation. Stair Climbing Assessment Evaluation Level of Assist On Stairs Contact Guard Assistance Devices Stair Climbing Assistive Devices Left Railing Technique/Endurance Stair Climbing Direction Ascend and Descend Stair Climbing Technique Step to Step Number of Steps Climbed 3 Stair Climbing Set # Repetitions (reps) 2 Comments Stair Climbing Comments Pt successfully completed stair training, required cues to lead with nonsurgical LE ascending and surgical descending. Pt has no increase in pain during stair training . Caregiver training with completed, pt demonstrated proper ascend/descend order w/ o cues. Pts displays proper guarding technique. PT-Balance Assessment Sitting Balance and Reactions Static Sitting Balance Ability Normal Dynamic Sitting Balance Ability Normal Standing Balance and Reactions Static Standing Balance Ability Normal Dynamic Standing Balance Ability Normal M5 PT-IP Objective Assessments Start: 04/06/19 14:37 Freq: NEEDED Status: Active Protocol: Document 04/06/19 15:42 AW (Rec: 04/06/19 16:11 AW [id number]) Orientation Orientation/Cognition Level of Alertness Alert Orientation Name,Day of Week,Place, Situation Language Function Ability No Deficits Noted Safety Awareness Understands Safety Issues Memory Description No Deficits Noted Gross Range of Motion Upper Extremity ROM Assessment Within Functional Limits Lower Extremity ROM Assessment Left Impaired Strength Upper Extremity Strength Assessment Within Functional Limits Lower Extremity Strength Assessment Left Impaired Comments Strength Comments RLE grossly 5/5 Sensation Assessment Comments Sensation Comments Pt did not present with diminished sensation on exam, but had no sensation of voiding urine in standing. M6 PT-IP Treatment Start: 04/06/19 14:37 Freq: NEEDED Status: Active Protocol: Document 04/08/19 08:40 PRECIOUS (Rec: 04/08/19 09:35 PRECIOUS [email or web address]) Physical Therapy Treatment Education Education Provided Safety Other Treatments Other Treatment Performed Caregiver training for safe ambulation and stair ascending /descending. M7 PT-IP Assessment and Plan Start: 04/06/19 14:37 Freq: NEEDED Status: Active Protocol: Document 04/08/19 08:40 PRECIOUS (Rec: 04/08/19 09:35 PRECIOUS [email or web address]) PT Summary Assessment and Plan Potential Rehabilitation Potential Good Status of Condition at Evaluation Stable Summary Assessment Summary Pt had stable BP today upon arrival and secondary to exercise. Required some cues for proper usage of FWW, but able to correct immediately. Successful caregiver training for ambulation with FWW and stair training with L handrail . He was able to ambulate further distance than required in home. Pt safe to d/c when medically stable. Recommendations To Nursing Amount of Assist Needed 1 Person Assist Discharge Recommendations PT Discharge Recommendations Home with Assistance, Outpatient PT
--- NOTE | 2019-04-08 10:06 | PC.NURSE ---
Hemovac removed at 0800 this morning, sanguinous drainage noted with small clot, 2x2 guaze and tegaderm applied. Patient tolerated well. 2+ pitting edema noted at left knee near incision site. Patient complains of little pain, states 0.3 on a 0-10 scale.
[2019-04-08] MEDS: FUROSEMIDE 20 MG/2 ML VIAL IV (10:52)
[2019-04-08 11:32] VITALS: BP 144/62; PULSE 61; RESP 18; TEMP 36.6; O2SAT 99
[2019-04-08 11:46] VITALS: BP 144/90
--- NOTE | 2019-04-08 13:39 | PC.NURSE ---
Discharge: Pt feels ready to d/c to home. Has received d/c instructions from PT. Seen by PA and received his instructions. Reviewed d/c information with pt and spouse. BP in control and he understands he needs to follow up with his regular doctor. Does know some meds have been changed and he is aware. Reviewed instructions for knee, constipation, and fall prevention. Given RX, questions answered. Spouse was present for all teaching. Pt had no concerns at time of d/c. Pt d/c home via auto w/spouse.
--- NOTE | 2019-04-08 16:12 | P.DS_ITS ---
History of Present Illness History of Present Illness Date Patient Seen: 04/08/19 Chief complaint: [id number] Narrative: Please see HPI previously recorded in chart. Discharge Providers Provider Date of admission: 04/07/19 11:01 Discharge Date: 04/08/19 Primary care physician: Emmanuel Cruz MD Consults: 04/06/19 06:00 Consult to Anesthesiology Routine Comment: Consulting Provider: Anesthesiologist Reason for consultation: Regional block for post operative pain control 04/06/19 11:30 Consult to Discharge Planning Routine Comment: Consult to Physical Therapy Evaluate & Treat Comment: Physician Instructions: postop TKA protocol Consult to Respiratory Therapy Evaluate & Treat Comment: Physician Instructions: Evaluate and treat 04/07/19 13:52 Consult to Hospitalist Service Routine Comment: Elevated BP Consulting Provider: Eva Luong Reason for consultation: Elevated blood pressure. Discharge provider: Loan Balderrama PA-C Summary Hospital Course Discharge Diagnosis: s/p left total knee arthroplasty Hospital Course: The patient has had progressively worsening left knee pain with radiographic changes consistent with arthritis. Non-operative management has failed and the patient has requested total knee replacement. The risks, benefits and alternatives to surgery were discussed with the patient prior to proceeding. Risks discussed included, but were not limited to, failure to relieve pain, stiffness, infection, nerve damage, deep venous thrombosis, pulmonary embolism, stroke, coma, heart attack, permanent paralysis and , as well as the potential need for eventual revision of the prosthetic. After obtaining informed consent he was taken to the operating room where he underwent a left total knee arthroplasty with Dr. Hendricks which he tolerated well with no complications. Post operatively he was transferred to the acute care [facility] where he has been progressing well. Post op day #1 his pain was well controlled and he was able to mobilize well with PT and completed stair training. His blood pressure was somewhat elevated from preop through the course of his hospitalization. Late POD#1 he had several readings with a systolic BP >200. Case was discussed with the hospitalist who recommended one time dose of Labetalol 10mg IV and Lasix 20mg IV, along with changing his home doses of Atenolol to 100mg daily, Lisinopril 40mg BID, and Amlodipine 10mg daily. After said changes he had a marked improvement though he remained hypertensive. He remained asymptomatic throughout his hospitalization. POD#2 his pressures remained somewhat elevated so second dose of Lasix 20mg given. BP continued to improve and he was deemed medically stable for discharge. He was recommended to follow up this week with his PCP for continued management of his hypertension. Status at Discharge Cognitive/behavioral status at discharge: oriented Functional status at discharge: uses cane/walker Overall status at discharge: patient is progressing back to baseline Exam Vital Signs (past 8 hours): - 04/08/19 11:32 04/08/19 11:46 Temperature 97.9 F Pulse Rate 61 Respiratory Rate 18 Blood Pressure 144/62 H 144/90 H Pulse Oximetry 99 Oxygen Delivery Method Room Air Oxygen Flow Rate 0 Narrative Exam Narrative: 83 year old male resting comfortably in a chair. Alert and oriented in no acute distress. Aquacel dressing in place over left knee is CDI. Patient able to flex/extend the ankle. Calves soft, compressible. Palpable pedal pulse. Objective Labs Result Diagrams: 04/07/19 05:35 04/07/19 14:31 Discharge Plan Discharge Plan Patient Disposition: Home Discharge comment: D/c to home today Discharge orders & Medications Prescriptions: New acetaminophen 325 mg Tablet 975 mg PO TID Qty: 40 RF: 0 aspirin 81 mg Tablet,Delayed Release (Dr/Ec) 81 mg PO BID Qty: 40 RF: 0 ibuprofen 400 mg Tablet 400 mg PO Q4HR Qty: 40 RF: 0 docusate sodium [DOK] 100 mg Capsule 100 mg PO BID Qty: 40 RF: 0 oxycodone 5 mg Tablet 5 mg PO Q3HR PRN (Reason: Pain, Moderate (4-6)) Qty: 1 RF: 0 Continued amlodipine 5 mg Tablet 5 mg PO BEDTIME RF: 0 lisinopril 40 mg Tablet 40 mg PO BID RF: 0 atenolol 50 mg Tablet 50 mg PO DAILY RF: 0 Follow up/Referrals: Emmanuel Cruz MD [Primary Care Provider] - (Please follow up within one week for continued hypertension management) Prudence Hendricks MD [Physician] - As previously scheduled Diet/Activity/Treatments Diet: Diet as Tolerated Activity: Weight bear as tolerated. Use front wheel walker for support. Cold/Heat Therapy: Ice packs as needed. Other treatments: Your blood pressure was elevated during the course of your hospital stay. You should continue to take your Lisinopril as prescribed. However increase the Atenolol to 100mg daily and your Amlodipine to 10mg at bedtime. You should follow up with your primary care doctor this week, and co ntinue to monitor your blood pressures at home if possible. Skin/Wound/Dressing Care Report to your healthcare provider any signs of infection, such as:: chills, fever, night sweats, unusual drainage and unusual redness Dressing: Aquacel dressing to remain in place. Please call the office if dressing becomes saturated. Visit Report/Discharge Packet Instructions: DI for Knee Replacement, DI for Constipation, How to Prevent Falls Visit Report Forms: Patient Portal/API, Stroke Signs & Symptoms Discharge Data Primary Care Provider: Emmanuel Cruz Attending Provider: Prudence Hendricks Admit Date/Time: 04/07/19 11:01 Discharges patient from system. Discharge Date/Time: 04/08/19 12:20
== END 2019-04-08 12:20 | disposition home or self-care (01) ==
LOC: AC 04-08 12:46 → OR 04-08 15:51 → AC 04-08 15:54 → OR 04-08 15:54
PROVIDERS: Physician Assistant Surgical; Admitting Provider Orthopaedic Surgery; Family Provider Family Medicine; PCP Family Medicine; Visit Provider Orthopaedic Surgery
PROC: 0SRD0JZ Replacement of Left Knee Joint with Synthetic Substitute, Open Approach (ICD-10-PCS; CPT 27447; principal; 2019-04-06 07:45)
DX: M17.12 Unilateral primary osteoarthritis, left knee (principal); I10 Essential (primary) hypertension
CPT/HCPCS: 27447; 36415; 73560; 80048; 83735; 85014; 85018; 94760; 97110; 97116; 97162; 97530; C1776; G0378; C9290; J0690; J1940; J2250; J2704; J3010

== ENCOUNTER → 2023-10-29 13:50 | Outpatient (CLI) | payer MEDICARE, OTHER, SELFPAY ==
[2019-04-06 12:13] VITALS: BMI 24.7
--- NOTE | 2023-10-29 13:52 | DI.US.S_ITS ---
PROCEDURE: US ARTERIAL DUPLEX LE BI INDICATIONS: PERIPHERAL ARTERY DISEASE TECHNIQUE: Color and pulse Doppler interrogation was performed of both lower extremity arterial systems, with image documentation. COMPARISON: None. FINDINGS: Right lower extremity: Common femoral artery: 122/178/216 cm/sec, with biphasic flow. Deep femoral artery: 140 cm/sec, with monophasic flow. Proximal superficial femoral artery: 49 cm/sec, with monophasic flow. Mid superficial femoral artery: 21 cm/sec, with monophasic flow. Segmental occlusion with a collateral vessel. Distal superficial femoral artery: 81 cm/sec, with monophasic flow. Popliteal artery: 48/56 cm/sec, with monophasic flow. Posterior tibial artery: Occluded/47/35 cm/sec, with monophasic flow. Anterior tibial artery/dorsalis pedis: 74/17 cm/sec, with monophasic flow. Bacon-scale imaging description: Scattered atherosclerotic plaque. Mid SFA ectasia/aneurysm measuring 1.3 x 1.3 cm. Left lower extremity: Common femoral artery: 113 cm/sec, with biphasic flow. Deep femoral artery: 126 cm/sec, with biphasic flow. Proximal superficial femoral artery: Occluded Mid superficial femoral artery: Occluded Distal superficial femoral artery: 50 cm/sec, with monophasic flow. Popliteal artery: 53/44 cm/sec, with aphasic flow. Posterior tibial artery: 54/40 cm/sec, with monophasic/monophasic flow. Anterior tibial artery/dorsalis pedis: 20/37 cm/sec, with monophasic flow. Bacon-scale imaging description: Scattered atherosclerotic plaque. Proximal and mid SFA are occluded. IMPRESSION: 1. Right lower extremity demonstrates mid SFA ectasia/aneurysm measuring 1.3 x 1.3 cm and segmental occlusion. Predominantly monophasic waveforms throughout the vasculature suggestive of aortoiliac inflow disease. 2. Left lower extremity demonstrates proximal and mid SFA occlusion. Remainder of the runoff demonstrates monophasic waveforms. Consider a CTA bilateral lower extremity runoff for further evaluation. Dictated by: Penny Plummer M.D. on 10/29/2023 at 16:52 Approved by: Penny Plummer M.D. on 10/29/2023 at 16:56
== END ==
PROVIDERS: Family Provider Family Medicine; PCP Family Medicine; Referring Provider Nurse Practitioner; Visit Provider Nurse Practitioner
DX: I70.203 Unspecified atherosclerosis of native arteries of extremities, bilateral legs (principal)
CPT/HCPCS: 93925

== ENCOUNTER → 2023-11-17 08:18 | Outpatient (CLI) | payer MEDICARE, OTHER, SELFPAY ==
[2019-04-06 12:13] VITALS: BMI 24.7
--- NOTE | 2023-11-17 08:22 | DI.CT.S_ITS ---
PROCEDURE: CT ANGIO ABD AORTA RUNOFF INDICATIONS: Peripheral vascular disease, unspecified TECHNIQUE: After the administration of intravenous contrast, 2.5 mm sections acquired from T12 to the feet, with optional delayed image acquisition from the knees to the feet. 3-dimensional maximum intensity projection (MIP) coronal and sagittal reformats, and/or 3-dimensional volume rendering reformatting was then performed. For radiation dose reduction, the following was used: automated exposure control. COMPARISON: [facility], , ARTERIAL DUPLEX [facility], 10/29/2023, 14:17. FINDINGS: Image Quality: Diagnostic. Abdominal aorta: Diffuse wall calcifications. No stenosis or aneurysm. Splanchnic vessels: There is a moderate celiac origin stenosis. Calcified stenosis of the SMA may be as much as moderate. KUNAL is grossly patent. Focal severe/high-grade stenosis of the right renal artery approximately 1.5 cm beyond the origin. Reference coronal reformat image 143 of series 5. Left renal artery does not have a significant stenosis. Right lower extremity: Diffuse iliac calcifications without significant stenosis of the common iliac or external iliac. Severe calcified focal stenosis of the common femoral artery. Reference axial image 209/4. Ectasias of the proximal left SFA. Long segment SFA occlusion beginning approximately 8 cm below its origin. From this point it is occluded to the mid thigh in which should as extensive diffuse calcified disease. There is severe distal SFA stenosis. There is popliteal stenotic disease in the [id number] popliteal portion. The geniculate popliteal is not visualized secondary to metal artifact. Anterior tibial is a continuous vessel. Severe tibioperoneal trunk disease. Peroneal and posterior tibial are patent. Left lower extremity: Common iliac is diffusely calcified without stenosis. At the level of the iliac bifurcation there is a web-like severe stenosis of the proximal external iliac. The external iliac is otherwise patent. The common femoral has mild disease. The SFA is occluded just beyond its origin. There is reconstitution at Tyrell's canal. There is severe supra geniculate popliteal stenotic disease. The geniculate portion is obscured by metal artifact secondary to total knee arthroplasty. Anterior tibial is discontinuous. Posterior tibial and peroneal are continuous runoff vessels. Lower Chest: Severe coronary artery calcifications. Four-chamber cardiomegaly. ABDOMEN: Liver: No solid mass. Gallbladder: No radiopaque gallstones or wall thickening. Biliary ducts: No biliary dilation. Pancreas: No ductal dilation. Spleen: Size is within normal limits. Adrenal Glands: No adrenal nodules. Kidneys and Ureters: No hydronephrosis. No solid mass. No complex renal cystic lesion which requires follow up. Stomach and Bowel: Normal colonic caliber, without significant wall thickening. Advanced diverticulosis without evidence of acute diverticulitis. Peritoneum: No abnormal intraperitoneal fluid. No free air. Ventral Wall: No hernia. Abdominal Nodes: No retroperitoneal or mesenteric adenopathy by size criteria. Vessels: Aorta and inferior vena cava are normal in size. PELVIS: Pelvic Organs: Prostate implant seeds. Prominent right seminal vesicle. Bladder: Unremarkable. Pelvic Nodes: No enlarged lymph nodes. Miscellaneous: No inguinal hernias are seen. Bones: No aggressive osseous abnormality. No blastic bony disease. Lumbar degenerative change. Total right hip arthroplasty. IMPRESSION: 1. 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 2. Focal severe/high-grade right renal artery stenosis. This is non ostial. 3. Right lower extremity runoff significant for a severe calcified focal stenosis of the common femoral, long segment occlusion of the SFA, above the knee popliteal stenotic disease, severe tibioperoneal trunk disease, and three-vessel runoff. 4. Left lower extremity runoff significant for a focal severe web-like stenosis of the external iliac near its origin, long segment occlusion of the SFA, severe supra geniculate popliteal disease, and 2 vessel runoff. 5. Severe coronary artery calcifications, four-chamber cardiomegaly. 6. Advanced diverticulosis without evidence of diverticulitis. 7. Prostate implant seeds. 8. Prominence of the right seminal vesicle. Dictated by: Maykel Hurtado M.D. on 11/17/2023 at 10:28 Approved by: Maykel Hurtado M.D. on 11/17/2023 at 11:03
== END ==
PROVIDERS: Family Provider Family Medicine; PCP Family Medicine; Referring Provider Nurse Practitioner; Visit Provider Nurse Practitioner
DX: I70.203 Unspecified atherosclerosis of native arteries of extremities, bilateral legs (principal); I70.1 Atherosclerosis of renal artery; I77.1 Stricture of artery; I25.10 Atherosclerotic heart disease of native coronary artery without angina pectoris; I51.7 Cardiomegaly; K57.90 Diverticulosis of intestine, part unspecified, without perforation or abscess without bleeding
CPT/HCPCS: 75635; Q9967